=== PATIENT | male | born 1990 | race Two or more races ===

== ENCOUNTER 2020-09-07 13:17 | Outpatient (REF) | payer MEDICAID, OTHER, SELFPAY | END 2020-09-07 13:18 | disposition home or self-care (01) | LOC: HO.LAB 13:17 | PROVIDERS: Visit Provider Internal Medicine | DX: Z20.828 Contact with and (suspected) exposure to other viral communicable diseases (principal) | CPT/HCPCS: C9803; U0003 ==

== ENCOUNTER → 2021-10-08 15:35 | Outpatient (BNVA) | payer OTHER, SELFPAY | PROVIDERS: PCP Internal Medicine; Referring Provider Internal Medicine; Visit Provider Surgery | DX: N50.811 Right testicular pain (principal); N50.812 Left testicular pain; K40.91 Unilateral inguinal hernia, without obstruction or gangrene, recurrent | CPT/HCPCS: 99202 ==

== ENCOUNTER 2021-11-06 15:40 | Outpatient (REF) | payer OTHER, SELFPAY ==
--- NOTE | ~2021-11-06 | US_ITS ---
EXAMINATION: US SCROTUM CLINICAL INFORMATION: Cyst of the epididymis. COMPARISON: Ultrasound scrotum 03/17/2018. TECHNIQUE: A sonogram of the scrotum was performed assessing sevilla-scale appearance and color Doppler flow. Spectral Doppler analysis of the arterial and venous flow were performed in the testes bilaterally. FINDINGS: RIGHT: Right testicle measures 5.9 x 2.8 x 3.2 cm, volume 27.6 mL. No focal testicular parenchymal lesions are visualized. Spectral Doppler analysis of the arterial and venous flow is normal in the right testis. Right epididymal head is normal in size. There is a right epididymal cyst measuring 0.7 x 0.5 x 0.4 cm No right hydrocele or varicocele is seen. Right epididymal Doppler flow is normal. LEFT: Left testicle measures 5.5 x 2.4 x 3.5 cm, volume 24.2 mL. No focal testicular parenchymal lesions are visualized. Spectral Doppler analysis of the arterial and venous flow is normal in the left testis. Left epididymal head is normal in size. No left hydrocele or varicocele is seen. Left epididymal Doppler flow is normal. US/US scrotum IMPRESSION: Small right epididymal cysts. Both testes are unremarkable.
== END 2021-11-06 15:41 | disposition home or self-care (01) ==
LOC: HO.US 15:40
PROVIDERS: PCP Nurse Practitioner Family; Visit Provider Nurse Practitioner Family
DX: N50.3 Cyst of epididymis (principal)
CPT/HCPCS: 76870

== ENCOUNTER 2022-01-24 13:11 | Outpatient (REF) | payer OTHER, SELFPAY ==
--- NOTE | ~2022-01-24 | MM_ITS ---
EXAMINATION: MM DIAGNOSTIC DIGITAL BREAST TOMOSYNTHESIS, BILATERAL US DIAGNOSTIC ULTRASOUND BREAST, LEFT CLINICAL INFORMATION: 31-year-old male with six-month history fullness retroareolar left breast. Patient notes one episode of spontaneous clear nipple discharge approximately 6 months ago. No nipple discharge since. No prior breast imaging. No known family history breast cancer. COMPARISON: None (current study represents initial baseline exam). TECHNIQUE: Digital breast tomosynthesis is performed in both the craniocaudal and mediolateral oblique views along with computer-aided detection (CAD). Synthesized 2D images are generated from the tomosynthesis. Ultrasound left breast is targeted to the retroareolar and periareolar region. Grayscale imaging and color Doppler are performed without and with harmonics. FINDINGS: The breasts are almost entirely fatty (ACR BI-RADS breast composition Category a). No gynecomastia demonstrated. There is no mass or architectural abnormality. No abnormal calcifications. No skin thickening or retraction or coarsening of the stromal markings. No adenopathy. There are some punctate densities in otherwise unremarkable left axillary lymph node and a right axillary lymph node, most likely related to tattoo pigment. Ultrasound demonstrates no cystic or solid mass or architectural abnormality. No skin thickening or edema tracking in soft tissue planes. Results are discussed with the patient at time of visit, using an educational sign language interpreter. MM/MM tomosynthesis diagnostic BI IMPRESSION: -No mammographic evidence of malignancy. Normal targeted left breast ultrasound. -Probable scant tattoo pigment in otherwise unremarkable left axillary node and right axillary node. ASSESSMENT: BI-RADS 2: Benign RECOMMENDATION: Patient should be managed based on the clinical impression. If clinically indicated, further evaluation may be considered with surgical consult. Decision to proceed with biopsy should be based on clinical grounds and degree of clinical concern.
== END 2022-01-24 13:12 | disposition home or self-care (01) ==
LOC: HO.MAMMO 13:11
PROVIDERS: PCP Nurse Practitioner Family; Visit Provider Nurse Practitioner Family
DX: R92.2 Inconclusive mammogram (principal)
CPT/HCPCS: 76642; 77062; 77066

== ENCOUNTER 2023-03-04 15:00 | Outpatient (REF) | payer OTHER, SELFPAY ==
--- NOTE | ~2023-03-04 | MM_ITS ---
EXAMINATION: MM DIAGNOSTIC DIGITAL BREAST TOMOSYNTHESIS, BILATERAL US DIAGNOSTIC ULTRASOUND BREAST, LEFT CLINICAL INFORMATION: 32-year-old male with persistent fullness lateral retroareolar left breast with mild tenderness. Patient perceives increased since prior exam 2021. In distant past, patient had 1 episode of spontaneous clear nipple discharge, none since then. No known family history breast cancer. COMPARISON: Bilateral mammography and left breast ultrasound 01/24/2022. TECHNIQUE: Digital breast tomosynthesis is performed in both the craniocaudal and mediolateral oblique views along with computer-aided detection (CAD). Synthesized 2D images are generated from the tomosynthesis. Additional left view nipple in profile performed. Ultrasound left breast is targeted to the retroareolar region using grayscale imaging and color Doppler without and with harmonics. FINDINGS: The breasts are almost entirely fatty (ACR BI-RADS breast composition Category a). There is no interval mass or architectural abnormality. No skin thickening or coarsening of the stromal markings. Ultrasound demonstrates no cystic or solid mass or architectural abnormality. No focal duct ectasia. No skin thickening or edema tracking in soft tissue planes. Results and management options are discussed with the patient at time of visit using an fiberglass quality technician. MM/MM tomosynthesis diagnostic BI IMPRESSION: -No mammographic evidence of malignancy. -Unremarkable left breast ultrasound. ASSESSMENT: BI-RADS 1: Negative RECOMMENDATION: -As patient has had persistent symptoms, surgical consult is suggested for further evaluation, assessment, and recommendation.
== END 2023-03-04 15:01 | disposition home or self-care (01) ==
LOC: HO.MAMMO 15:00
PROVIDERS: PCP Registered Nurse; Visit Provider Registered Nurse
DX: N63.42 Unspecified lump in left breast, subareolar (principal)
CPT/HCPCS: 76642; 77062; 77066

== ENCOUNTER 2023-03-10 15:44 | Outpatient (REF) | payer OTHER, SELFPAY | END 2023-03-10 15:45 | disposition home or self-care (01) | LOC: HO.US 15:44 | PROVIDERS: PCP Registered Nurse; Visit Provider Registered Nurse | DX: N50.89 Other specified disorders of the male genital organs (principal) | CPT/HCPCS: 76870 ==

== ENCOUNTER 2025-03-30 08:53 | Outpatient (REF) | payer MEDICAID, SELFPAY ==
--- OUTSIDE RECORDS SUMMARY | 2025-03-29 19:00 | XMS_ITS | Encounter Summary ---
Author Organization [employer] Address [address] [place] [address] Care Team Providers Care Gas Adjuster Name Role Phone Mandy Velasquez MD Primary Care Provider [phone] Encounter Details Date Type Department Care Team (Late st Contact Info) Description 03/29/2025 7:00 PM EDT Office Visit [facility] [address] [place] [address] [phone] Mandy Velasquez MD [address], [place] [phone] Neutropenia, unspecified type (CMS/HCC) (Primary Dx); Dietary counseling; Exercise counseling; Other fatigue; Depressive disorder Social History Tobacco Use Types Packs/Day Years Used Date Smoking Tobacco: Never Passive Smoke Exposure: Never Smokeless Tobacco: Never Alcohol Use Standard Drinks/Week Comments Yes 0 (1 standard drink = 0.6 oz pur e alcohol) Ocassionally Depression Answer Date Recorded Patient Health Questionnaire-9 Score 0 08/04/2024 Patient Health Questionnaire-9 Score 0 08/04/2024 Last PHQ-9: Questionnaire Data Not on file 1 10/04/2023 Housing Stability Answer Date Recorded What is your housing situation today? Not on loi e 11/14/[address] you li ve. Do you have problems with any of the following? None of the above 11/14/2024 Food Insecurity Answer Date Recorded Within the past 12 months, y ou worried that your food would run out before you got money to buy more: Never True 08/04/2024 Within the past 12 months,th e food you bought just didn't last and you didn't have enough money to get more: Never True Transportation Answer Date Recorded In the past 12 months, has l ack of transportation kept you from medical appts, meetings, work or from getting things needed for daily living? No 07/14/2023 Utilities Answer Date Recorded In the past 12 months, has t he electric, gas, oil or water company threatened to shut off services in your home? No 07/14/2023 Depression Answer Date Recorded Patient Health Questionnaire-2 Score 0 08/04/2024 Internet Access Answer Date Recorded Internet Access Q1 Yes 08/04/2024 Internet Access Q2 Not on file 08/04/2024 Sex and Gender Information Value Date Recorded Sex Assigned at Male 07/08/2022 10:34 AM EDT Legal Sex Male 10:34 AM EDT Gender Identity Male 07/08/2022 10:34 AM EDT Sexual Orientation Straight 07/08/2022 10 :34 AM EDT documented as of this encounter Last Filed Vital Signs Vital Sign Reading Time Taken Comments Blood Pressure 120/76 03/29/2025 6:02 PM EDT Pulse 61 03/29/2025 6:02 PM EDT Temperature 36.8 C (98.3 F) 03/29/2025 6:02 PM EDT Respiratory Rate 19 03/29/2025 6:02 PM EDT Oxygen Saturation 97% 03/29/2025 6:02 PM EDT Inhaled Oxygen Concentration - - Weight 83.9 kg (185 lb) 03/29/2025 6:02 PM EDT Height 182.9 cm (6') 03/29/2025 6:02 PM EDT Body Mass Index 25.09 03/29/2025 6:02 PM EDT documented in this encounter Progress Notes * Mandy Velasquez MD - 03/29/2025 7:00 PM EDT SUBJECTIVE: Curt Mason is a 34 y.o. year old male who presents for chronic disease management. Denies recent illness, ER visit, or hospitalization. Acute Concerns: Fatigue, mood swings Nl testosterone in 2022 Latest Reference Range & Units 02/20/23 10:36 Glucose 65 - 99 mg/dL 83 Urea Nitrogen (BUN) 7 - 25 mg/dL 21 Creatinine, Serum 0.60 - 1.26 mg/dL 1.00 eGFR > OR = 60 mL/min/1.73m2 101 BUN/Creatinine Ratio 6 - 22 (calc) NOT APPLICABLE Sodium 135 - 146 mmol/L 139 Potassium 3.5 - 5.3 mmol/L 3.8 Chloride 98 - 110 mmol/L 103 Carbon Dioxide 20 - 32 mmol/L 32 Calcium 8.6 - 10.3 mg/dL 9.7 Protein, Total 6.1 - 8.1 g/dL 7.3 Globulin 1.9 - 3.7 g/dL (calc) 3.0 Albumin/Globulin Ratio 1.0 - 2.5 (calc) 1.4 Bilirubin, Total 0.2 - 1.2 mg/dL 0.6 Alkaline Phosphatase 36 - 130 U/L 66 AST 10 - 40 U/L 52 (H) ALT 9 - 46 U/L 26 Albumin 3.6 - 5.1 g/dL 4.3 Cholesterol, Total <200 mg/dL 131 HDL Cholesterol > OR = 40 mg/dL 41 Triglycerides <150 mg/dL 61 LDL Cholesterol mg/dL (calc) 76 Chol/HDLC Ratio <5.0 (calc) 3.2 Non-HDL Cholesterol <130 mg/dL (calc) 90 Vitamin D,25-OH, Total, IA 30 - 100 ng/mL 24 (L) White Blood Cell Count 3.8 - 10.8 Thousand/uL 3.5 (L) Red Blood Cell Count 4.20 - 5.80 Million/uL 4.82 Hemoglobin 13.2 - 17.1 g/dL 14.2 Hematocrit 38.5 - 50.0 % 41.6 MCV 80.0 - 100.0 fL 86.3 MCH 27.0 - 33.0 pg 29.5 MCHC 32.0 - 36.0 g/dL 34.1 RDW 11.0 - 15.0 % 13.4 Platelet Count 140 - 400 Thousand/uL 226 MPV 7.5 - 12.5 fL 9.8 Eosinophils % 0.8 Absolute Neutrophils 1,500 - 7,800 cells/uL 1,225 (L) Absolute Lymphocytes 850 - 3,900 cells/uL 1,894 Basophils % 0.8 Lymphocytes % 54.1 Absolute Monocytes 200 - 950 cells/uL 326 Neutrophils % 35 Absolute Eosinophils 15 - 500 cells/uL 28 Absolute Basophils 0 - 200 cells/uL 28 Monocytes % 9.3 Hepatitis B Core Antibody Total NON-REACTIVE NON-REACTIVE Hepatitis B Surface Antigen NON-REACTIVE NON-REACTIVE Hepatitis B Surface Antibody Immunity, QN > OR = 10 mIU/mL <5 (L) Hepatitis C Antibody NON-REACTIVE NON-REACTIVE HIV Antigen/Antibody, 4th Generation NON-REACTIVE NON-REACTIVE Index <1.00 0.11 RPR (DX) w/Refl Titer and Confirmatory Testing NON-REACTIVE NON-REACTIVE Testosterone, Total, MS 250 - 1,100 ng/dL 456 Interim Updates: PMH: L breast mass, resolved spontaneously PSH: L inguinal hernia repair, 15-20 years ago Meds: no daily medication FH: asthma in son and Social: works cutting hair Lives with and two kids Denies alcohol, tobacco, illicits Health Maintenance STI- declines today Imms- declines Flu and COVID Patient Active Problem List Diagnosis Date Noted Neutropenia (CMS/HCC) 03/29/2025 Encounter to establish care with new doctor 08/10/2024 Vitamin D deficiency 03/30/2023 Migraine with aura and without status migrainosus, not intractable 03/30/2023 Mass of left breast 03/30/2023 Left varicocele 03/20/2023 Erectile dysfunction 03/20/2023 Depressive disorder 02/20/2023 Scrotal hernia 09/20/2021 Cyst of epididymis 03/31/2018 Chronic low back pain 03/17/2018 Surgical History[1] Social History Social History Narrative Not on file Review of Systems OBJECTIVE: Vitals: 03/29/25 1802 BP: 120/76 BP Location: Right arm Patient Position: Sitting BP Cuff Size: Adult Pulse: 61 Resp: 19 Temp: 98.3 ??F (36.8 ??C) TempSrc: Oral SpO2: 97% Weight: 185 lb (83.9 kg) Height: 6' (1.829 m) Physical Exam ASSESSMENT/PLAN Problem List Items Addressed This Visit Depressive disorder Neutropenia (CMS/HCC) - Primary Relevant Orders CBC auto differential Sed Rate by Modified [place] C-reactive Protein Lactate Dehydrogenase Isoenzymes Protein, Total and Protein Electrophoresis Other Visit Diagnoses Dietary counseling Exercise counseling Other fatigue Relevant Orders TSH W/Reflex to FT4 Herpes Simplex Virus 1 and 2 (IgG), Type-Specific Antibodies Follow Up: 4 months or sooner prn Allergies[2] Current Medications[3] Frisian Translation: Provided by [facility] staff member YULIA Briones [1] History reviewed. No pertinent surgical history. [2] No Known Allergies [3] Current Outpatient Medications: cholecalciferol (Vitamin D-3) 25 MCG (1000 UT) tablet, Take 1 tablet (25 mcg) by mouth Once per day., Disp: 90 tablet, Rfl: 3 documented in this encounter Plan of Treatment Scheduled Orders Name Type Priority Associated Diagnoses Orde r Schedule CBC auto differential Lab Routine Neutropenia, unspecified type (CMS/HCC) Expected: 03/29/2025 (Approximate), Expires: 03/29/2026 Sed Rate by Modified [place]gren Lab Routine Neutropenia, unspecified type (CMS/HCC) Expected: 03/29/2025, Expires: 03/29/2026 C-reactive Protein Lab Routine Neutropenia, unspecified type (CMS/HCC) Expected: 03/29/2025 (Approximate), Expires: 03/29/2026 Lactate Dehydrogenase Isoenzymes Lab Routine Neutropenia, unspecified type (CMS/HCC) Expected: 03/29/2025 (Approximate), Expires: 03/29/2026 Protein, Total and Protein Electrophoresis Lab Routine Neutropenia, unspecified type (CMS/HCC) Expected: 03/29/2025 (Approximate), Expires: 03/29/2026 TSH W/Reflex to FT4 Lab Routine Other fatigue Expected: 03/29/2025 (Approximate), Expires: 03/29/2026 Herpes Simplex Virus 1 and 2 (IgG), Type-Specific Antibodies Lab Routine Other fatigue Expected: 03/29/2025 (Approximate), Expires: 03/29/2026 documented as of this encounter Visit Diagnoses Diagnosis Neutropenia, unspecified type (CMS/HCC)- Primary Dietary counseling Dietary surveillance and counseling Exercise counseling Other fatigue Depressive disorder Depressive disorder, not elsewhere classified documented in this encounter Additional Health Concerns Assessment Noted Time PHQ-9 Depression Total Score: 0 08/04/20 24 2:28 PM EST documented as of this encounter Care Teams Gas Adjuster Relationship Specialty Start Date End Date Mandy Velasquez MD [address] [place] [id number] PCP - General Family Medicine 10/22/23 documented as of this encounter
[2025-03-30 11:12] LABS: MANUAL DIFF FLAG NO
[2025-03-30 11:15] LABS: Hematocrit 45.1 % (42.0-52.0); Hemoglobin 15.0 g/dl (14.0-18.0); Imm Gran Abs Auto 0.02 X10*3/uL (0.00-0.03); Imm Gran Pct Auto 0.6 % (0.0-0.4); Lymphocytes Absolute Auto 2.1 X10*3/uL (1.2-4.9); Mean Corpuscular HGB Conc 33.3 g/dl (31.0-36.0); Mean Corpuscular Hemoglobin 29.1 pg (27.0-33.0); Mean Corpuscular Volume 87.4 fL (80.0-98.0); NRBC Abs Auto 0.000 X10*3/uL (0.0-0.012); NRBC Pct Auto 0.0 /100WBC (0.0-0.2); Platelet Count 207 X10*3/uL (160-400); Red Blood Count 5.16 X10*6/uL (4.60-5.80); White Blood Count 3.5 X10*3/uL (4.8-10.8)
[2025-03-30 11:41] LABS: Alanine Aminotransferase 48 U/L (0-40); Albumin Level 4.3 g/dL (3.5-5.0); Alkaline Phosphatase 76 U/L (39-117); Anion Gap 10 (12-20); Aspartate Amino Transferase 41 U/L (5-37); Blood Urea Nitrogen 17 mg/dL (9-16); Calcium 9.3 mg/dL (8.4-10.2); Carbon Dioxide 29 mmol/L (22-29); Chloride 105 mmol/L (96-108); Estimated Glomerular Filt Rate > 60; Potassium 4.4 mmol/L (3.3-5.1); Sodium 140 mmol/L (135-145); Total Protein 7.2 g/dL (6.5-8.0)
[2025-04-01 22:48] LABS: Prot Elec - Albumin 4.1 g/dL (3.8-4.8); Prot Elec - Alpha1 0.2 g/dL (0.2-0.3); Prot Elec - Alpha2 0.5 g/dL (0.5-0.9); Prot Elec - Beta 1 0.4 g/dL (0.4-0.6); Prot Elec - Beta 2 0.4 g/dL (0.2-0.5); Prot Elec - Gamma 1.5 g/dL (0.8-1.7); Prot Elec - Total Protein 7.1 g/dL (6.1-8.1)
== END 2025-03-30 08:54 | disposition home or self-care (01) ==
LOC: HO.HHCL 08:53
PROVIDERS: PCP General Practice; Visit Provider General Practice
DX: R53.83 Other fatigue (principal); D70.9 Neutropenia, unspecified; Z87.09 Personal history of other diseases of the respiratory system
CPT/HCPCS: 36415; 80053; 84165; 84443; 85025; 85652; 86140; 86695; 86696